=== PATIENT | female | born 1980 | race American Indian/Alaskan Native ===

== ENCOUNTER 2021-09-20 10:56 | Outpatient (CLI) | payer OTHER ==
[2021-09-20 12:13] LABS: Mean Corpuscular HGB Conc 30 % (30-34); Mean Corpuscular Volume 77 fl (79-97); Red Blood Count 3.88 M/mm3 (3.65-5.03); Red Cell Distribution Width 17.5 % (13.2-15.2)
[2021-09-20 12:15] LABS: Hematocrit 29.9 % (30.3-42.9); Hemoglobin 8.9 gm/dl (10.1-14.3)
[2021-09-20 12:21] LABS: Alanine Aminotransferase 16 units/L (7-56); Albumin 4.2 g/dL (3.9-5); Blood Urea Nitrogen 7 mg/dL (7-17); Calcium 9.1 mg/dL (8.4-10.2); Chol/HDL Ratio 3.09 %; HDL Cholesterol 65 mg/dL (40-59); Hemolysis Index 9; LDL Cholesterol,Direct 126 mg/dL (50-130)
[2021-09-20 12:42] LABS: BUN/Creatinine Ratio 10
[2021-09-20 13:06] LABS: Lymphocytes % (Auto) 41.3 % (13.4-35.0)
[2021-09-20 13:07] LABS: Basophils % (Auto) 0.8 % (0.0-1.8); Eosinophils % (Auto) 0.8 % (0.0-4.3); Lymphocytes # (Auto) 2.3 K/mm3 (1.2-5.4); Monocytes # (Auto) 0.4 K/mm3 (0.0-0.8); Monocytes % (Auto) 7.1 % (0.0-7.3)
[2021-09-20 13:08] LABS: Platelet Count 335 K/mm3 (140-440)
--- NOTE | 2021-09-20 13:55 | XRay Report ---
XR chest routine 2V INDICATION / CLINICAL INFORMATION: H/O PUL EMBOLISM. COMPARISON: None available. FINDINGS: SUPPORT DEVICES: None. HEART /PULMONARY VASCULATURE: No significant abnormality. LUNGS / PLEURA: No significant pulmonary or pleural abnormality. No pneumothorax. ADDITIONAL FINDINGS: No significant additional findings. IMPRESSION: 1. No acute findings. Signer Name: Vasquez Rodas MD Signed: 09/20/2021 1:51 PM Workstation Name: [email or web address]
[2021-09-23 13:39] LABS: Protein S, Free 98 % normal (50-147); Protein S, Total 112 % normal (70-140)
== END 2021-09-20 10:57 | disposition home or self-care (01) ==
LOC: LAB 10:56
PROVIDERS: ATTEND Internal Medicine
DX: J32.9 Chronic sinusitis, unspecified (principal); I26.99 Other pulmonary embolism without acute cor pulmonale; R06.09 Other forms of dyspnea; D64.9 Anemia, unspecified; Z87.898 Personal history of other specified conditions
CPT/HCPCS: 36415; 71046; 80053; 80061; 84436; 84443; 85025; 85301; 85305

== ENCOUNTER 2021-09-28 08:09 | Outpatient (CLI) | payer OTHER ==
[2021-09-28 09:21] LABS: Hemoglobin 8.9 gm/dl (10.1-14.3); Mean Corpuscular HGB Conc 32 % (30-34); Mean Corpuscular Volume 73 fl (79-97); Platelet Count 259 K/mm3 (140-440); Red Blood Count 3.83 M/mm3 (3.65-5.03); Red Cell Distribution Width 17.3 % (13.2-15.2)
[2021-09-28 09:23] LABS: BUN/Creatinine Ratio 10; Blood Urea Nitrogen 8 mg/dL (7-17); Calcium 9.4 mg/dL (8.4-10.2); Hemolysis Index 1
== END 2021-09-28 08:10 | disposition home or self-care (01) ==
LOC: LAB 08:09
PROVIDERS: ATTEND Internal Medicine
DX: I26.99 Other pulmonary embolism without acute cor pulmonale (principal); R06.02 Shortness of breath; J30.89 Other allergic rhinitis; J32.9 Chronic sinusitis, unspecified; D64.9 Anemia, unspecified; Z87.898 Personal history of other specified conditions
CPT/HCPCS: 36415; 36600; 80048; 82805; 85027

== ENCOUNTER 2022-03-03 17:22 | Emergency (ER) | payer OTHER ==
[2022-03-03] MEDS ORDERED: ACETAMINOPHEN 500 MG TAB PO STA (17:47)
[2022-03-03 18:19] LABS: Bacteria,Urine 1+ /HPF (Negative)
--- NOTE | 2022-03-03 18:24 | XRay Report ---
CHEST 2 VIEWS INDICATION / CLINICAL INFORMATION: fever/cevere cough. FINDINGS: SUPPORT DEVICES: None. HEART / MEDIASTINUM: No significant abnormality. LUNGS / PLEURA: No significant pulmonary or pleural abnormality. No pneumothorax. ADDITIONAL FINDINGS: No significant additional findings. IMPRESSION: 1. No acute findings. Signer Name: Mohan Iglesias MD Signed: 03/03/2022 6:20 PM Workstation Name: [id number]
[2022-03-03 18:40] LABS: Bilirubin,Urine Negative (Negative); Blood,Urine Moderate (Negative); Color,Urine Colorless (Yellow); PH,Urine 6.5 (5.0-7.0); Protein,Urine <15 mg/dL mg/dL (Negative); Urobilinogen,Urine < 2.0 mg/dL (<2.0)
[2022-03-03 19:12] LABS: Alanine Aminotransferase 14 units/L (7-56); Albumin 4.1 g/dL (3.9-5); BUN/Creatinine Ratio 5; Basophils % (Auto) 0.4 % (0.0-1.8); Blood Urea Nitrogen 4 mg/dL (7-17); Calcium 9.4 mg/dL (8.4-10.2); Eosinophils % (Auto) 0.1 % (0.0-4.3); Hemolysis Index 0; Lymphocytes # (Auto) 1.1 K/mm3 (1.2-5.4); Lymphocytes % (Auto) 17.2 % (13.4-35.0); Mean Corpuscular HGB Conc 29 % (30-34); Monocytes # (Auto) 0.6 K/mm3 (0.0-0.8); Monocytes % (Auto) 9.8 % (0.0-7.3); Platelet Count 302 K/mm3 (140-440)
[2022-03-03 19:15] LABS: Hematocrit 27.9 % (30.3-42.9); Hemoglobin 8.1 gm/dl (10.1-14.3); Mean Corpuscular Volume 70 fl (79-97)
--- NOTE | 2022-03-03 23:26 | Emergency Department Report ---
ED General Adult HPI - General Chief complaint: Medical Clearance Stated complaint: POSSIBLY COVID Time Seen by Provider: 03/03/22 22:26 Source: patient Mode of arrival: Ambulatory Limitations: No Limitations - History of Present Illness Initial comments: 41-year-old female presents to the emergency department with "feeling sick". Patient describes 2 days of just overall unwell cough congestion body aches fever, states she has had COVID before and her symptoms feel similar to having COVID again. She has been using [id number] cough medicines without improvement. Symptoms are without chest pain, no headache dizziness, no loss of appetite, no swelling of extremities, no nausea vomiting or abdominal pain. -: Sudden, days(s) Severity scale (0 -10): 9 Consistency: constant Improves with: none Worsens with: none Associated Symptoms: cough, fever/chills, malaise. denies: nausea/vomiting, toña rtness of breath, weakness Treatments Prior to Arrival: none - Related Data Previous Rx's Medication Instructions Recorded Last Taken Type Codeine Phosphate/Guaifenesin 10 ml PO Q6H PRN #100 03/03/22 Unknown Rx [Guaifen-Codeine 200-20 mg/10Ml] Ibuprofen [Motrin 800 MG tab] 800 mg PO Q8HR PRN #20 tablet 03/03/22 Unknown Rx Allergies Allergy/AdvReac Type Severity Reaction Status Date / Time No Known Allergies Allergy Verified 03/03/22 23:18 ED Review of Systems ROS: Stated complaint: POSSIBLY COVID Other details as noted in HPI Constitutional: chills, fever Respiratory: cough. denies: shortness of breath, wheezing Cardiovascular: denies: chest pain Musculoskeletal: myalgia ED Past Medical Hx - Past Medical History Previous Medical History?: No - Surgical History Past Surgical History?: No - Medications Home Medications: Home Medications Medication Instructions Recorded Confirmed Last Taken Type Codeine Phosphate/Guaifenesin 10 ml PO Q6H PRN #100 03/03/22 Unknown Rx [Guaifen-Codeine 200-20 mg/10Ml] Ibuprofen [Motrin 800 MG tab] 800 mg PO Q8HR PRN #20 tablet 03/03/22 Unknown Rx ED Physical Exam - General Limitations: No Limitations General appearance: alert, in no apparent distress - Head Head exam: Absent: atraumatic - Eye Eye exam: Present: normal appearance Pupils: Present: normal accommodation - ENT ENT exam: Present: normal exam, normal orophraynx, mucous membranes dry - Neck Neck exam: Present: normal inspection. Absent: tenderness, lymphadenopathy - Respiratory Respiratory exam: Present: normal lung sounds bilaterally. Absent: respiratory distress, wheezes, chest wall tenderness, accessory muscle use - Cardiovascular Cardiovascular Exam: Present: regular rate, tachycardia - GI/Abdominal GI/Abdominal exam: Present: soft, normal bowel sounds. Absent: distended, tenderness - Extremities Exam Extremities exam: Present: normal inspection, full ROM, normal capillary refill - Back Exam Back exam: Present: normal inspection - Neurological Exam Neurological exam: Present: alert, oriented X3, normal gait - Psychiatric Psychiatric exam: Present: normal affect, normal mood ED Course Vital Signs 03/03/22 03/03/22 17:39 17:56 Temperature 102.6 F H Pulse Rate 103 H Respiratory 18 20 Rate Blood Pressure 116/80 O2 Sat by Pulse 100 Oximetry ED Medical Decision Making - Lab Data Result diagrams: 03/03/22 18:33 03/03/22 18:33 - Radiology Data Radiology results: report reviewed - Medical Decision Making Chest x-ray is negative no acute process sats above 95% on room air, no use of mineral surveyor muscles, fever has also improved tremendously. Symptoms are most likely due to the viral infection. Which can be managed at home with meds Patient remained stable nontoxic-appearing, afebrile, ambulating steadily without assistance. Gone over ED findings with patient as well as plan for follow-up. Also discussed return precautions with patient, all questions and concerns addressed. Patient is stable to be discharged follow-up outpatient. Audio voice dictation device used, hence the chart might contain some dictation errors, mispronunciations, wrong spelling and wrong verbiage. Critical care attestation.: If time is entered above; I have spent that time in minutes in the direct care of this critically ill patient, excluding procedure time. ED Disposition Clinical Impression: Febrile illness, acute, Suspected COVID-19 virus infection Disposition: HOME / SELF CARE / HOMELESS Is pt being admited?: No Does the pt Need Aspirin: No Condition: Stable Instructions: Fever, Adult, COVID-19: How to Protect Yourself and Others - CDC Forms: Work/School Release Form(ED)
[2022-03-03 23:36] VITALS: BP 121/86
== END 2022-03-03 23:37 | disposition home or self-care (01) ==
LOC: ED 17:22
DX: R50.9 Fever, unspecified (principal); Z20.822 Contact with and (suspected) exposure to COVID-19
CPT/HCPCS: 36415; 71046; 80053; 81001; 85025; 99284